=== PATIENT | female | born 1975 | race American Indian/Alaskan Native ===

== ENCOUNTER 2021-07-15 12:59 | Inpatient (IN) | payer MEDICARE ==
[2021-07-16 05:27] LABS: Basophils # (Auto) 0.1 K/mm3 (0.0-0.1); Basophils % (Auto) 0.7 % (0.0-1.8); Eosinophils # (Auto) 0.2 K/mm3 (0.0-0.4); Eosinophils % (Auto) 2.1 % (0.0-4.3); Hematocrit 30.3 % (30.3-42.9); Hemoglobin 9.8 gm/dl (10.1-14.3); Lymphocytes # (Auto) 2.6 K/mm3 (1.2-5.4); Lymphocytes % (Auto) 34.4 % (13.4-35.0); Mean Corpuscular HGB Conc 32 % (30-34); Mean Corpuscular Volume 80 fl (79-97); Monocytes # (Auto) 0.5 K/mm3 (0.0-0.8); Monocytes % (Auto) 6.2 % (0.0-7.3); Platelet Count 376 K/mm3 (140-440); Red Cell Distribution Width 16.4 % (13.2-15.2)
[2021-07-16 05:50] LABS: Albumin 3.5 g/dL (3.9-5); BUN/Creatinine Ratio 16; Blood Urea Nitrogen 14 mg/dL (7-17); Calcium 8.6 mg/dL (8.4-10.2); Chol/HDL Ratio 3.08 %; HDL Cholesterol 36 mg/dL (40-59); Hemolysis Index 3; LDL Cholesterol,Direct 66 mg/dL (50-130)
[2021-07-16 05:57] LABS: Alanine Aminotransferase < 5 units/L (7-56)
--- NOTE | 2021-07-16 08:58 | History and Physical Report ---
GP History & Physical - History of Present Illness Date of admission: 07/15/21 Date of Examination: 07/16/21 Reason for Admission: Danger to self, Failure of Outpatient Treatment, Severe anxiety/depression History of Present Illness: Per Admission Note: pt was taken to [facility] [place] for aggressive behavior, hallucination, she was hearing and seeing her mother. pt is non compliance with medication. Jacqueline Garcia is a 46y/o patient who was admitted for aggressive behavior and psychosis. The patient is deaf but she is able to communicate by writing. She is a poor historian. She says she was admitted because she "gets into trouble and gets crazy and depressed." The patient verbalized being depressed but denies SI/HI. 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 The patient denies any illicit drug use, alcohol or nicotine. The patient also denies any psych diagnoses outside of depression. She did say she had a suicide attempt once. She says she gets angry and hit windows and geronimo. PAST PSYCHIATRIC HISTORY Diagnoses: Denies Suicide attempts or Self-harm behavior: Yes Prior psychiatric hospitalizations: Yes Substance Abuse history: None reported Previous psychiatric medications tried: Yes Outpatient treatment: Yes PAST MEDICAL HISTORY: Deaf Family Psychiatric History: None reported or documented SOCIAL HISTORY Marital Status: Single Living Arrangements: With a friend Employment Status: Disabled Access to guns/weapons: None reported Education: History of Abuse: None reported Legal History: Yes REVIEW OF SYSTEMS Constitutional: Negative for weight loss ENT: Negative for stridor Respiratory: Negative for cough or hemoptysis All other systems reviewed and are negative MENTAL STATUS EXAMINATION General Appearance and Behavior: Age appropriate, good hygiene, wearing appropriate clothes, good eye contact Cooperation: Participating/engaged, but Guarded Psychomotor Behavior: Psychomotor normal Mood: depressed Affect and affective range: Restricted Thought Process: circumstancial Thought Content: Depression Speech: Nonverbal Suicidal Ideation: Denies Homicidal Ideation: Denies HI Hallucinations: Denies Impulse Control: Impaired Insight and Judgment: Limited insight and judgment Memory: Normal Attention: Normal Orientation: Alert, Assessment and Plan (1) Schizophrenia Current Visit: Yes Status: Acute Treatment Plan Patient admitted for inpatient psychiatric evaluation, medication adjustment and close monitoring The patient's behavior, mood, sleep and appetite will be closely monitored. Patient enrolled in individual and group therapeutic sessions and encouraged to attend. Patient provided with a safe and structured environment. Patient's physical health needs will be addressed by the Hospitalist. Hospitalist Consulted Labs including CBC, CMP, Lipid profile and Hemoglobin A1C levels ordered for baseline reference Social Assessment will be completed and the Marketing Account Executive will work with patient and family to ensure a suitable and safe disposition Medication adjustment will be made as clinically indicated Olanzapine 5mg po daily Melatonin 5mg po qhs Depakote DR 125mg po BID Prozac 10mg po daily Usual Wellness Holiness/Preservation: - Start Trazodone 50 mg po QHS & 50 mg po QHS PRN between 10 PM & 2 AM for insomnia - Start Melatonin 5 mg po QHS to promote circadian rhythm The patient agreed on the treatment plan, understood the risk, benefit, alternative treatment, potential consequence of no treatment, and gave informed consent. Estimated days: 7 Post hospital care: primary care provider, psychiatric provider Case staffed with Dr. Jovel Legal Status: Voluntary Reaction to Hospitalization: Accepting Medications and Allergies Allergies Allergy/AdvReac Type Severity Reaction Status Date / Time No Known Allergies Allergy Verified 07/16/21 01:50 Home Medications Medication Instructions Recorded Confirmed Last Taken Type Unobtainable 07/16/21 07/16/21 Unknown History Results - Results Labs/Vitals: Laboratory Last Values WBC 7.6 K/mm3 (4.5-11.0) 07/16/21 05:02 RBC 3.80 M/mm3 (3.65-5.03) 07/16/21 05:02 Hgb 9.8 gm/dl (10.1-14.3) L 07/16/21 05:02 Hct 30.3 % (30.3-42.9) 07/16/21 05:02 MCV 80 fl (79-97) 07/16/21 05:02 MCH 26 pg (28-32) L 07/16/21 05:02 MCHC 32 % (30-34) 07/16/21 05:02 RDW 16.4 % (13.2-15.2) H 07/16/21 05:02 Plt Count 376 K/mm3 (140-440) 07/16/21 05:02 Lymph % (Auto) 34.4 % (13.4-35.0) 07/16/21 05:02 [place] % (Auto) 6.2 % (0.0-7.3) 07/16/21 05:02 Eos % (Auto) 2.1 % (0.0-4.3) 07/16/21 05:02 Baso % (Auto) 0.7 % (0.0-1.8) 07/16/21 05:02 Lymph # (Auto) 2.6 K/mm3 (1.2-5.4) 07/16/21 05:02 [place] # (Auto) 0.5 K/mm3 (0.0-0.8) 07/16/21 05:02 Eos # (Auto) 0.2 K/mm3 (0.0-0.4) 07/16/21 05:02 Baso # (Auto) 0.1 K/mm3 (0.0-0.1) 07/16/21 05:02 Seg Neutrophils % 56.6 % (40.0-70.0) 07/16/21 05:02 Seg Neutrophils # 4.3 K/mm3 (1.8-7.7) 07/16/21 05:02 Sodium 138 mmol/L (137-145) 07/16/21 05:02 Potassium 4.8 mmol/L (3.6-5.0) 07/16/21 05:02 Chloride 104.3 mmol/L (98-107) 07/16/21 05:02 Carbon Dioxide 25 mmol/L (22-30) 07/16/21 05:02 Anion Gap 14 mmol/L 07/16/21 05:02 BUN 14 mg/dL (7-17) 07/16/21 05:02 Creatinine 0.9 mg/dL (0.6-1.2) 07/16/21 05:02 Estimated GFR > 60 ml/min 07/16/21 05:02 BUN/Creatinine Ratio 16 % 07/16/21 05:02 Glucose 97 mg/dL (65-100) 07/16/21 05:02 POC Glucose 78 mg/dL (70-105) 07/15/21 23:26 Hemoglobin A1c 4.6 % (4-6) 07/16/21 05:02 Calcium 8.6 mg/dL (8.4-10.2) 07/16/21 05:02 Total Bilirubin 0.30 mg/dL (0.1-1.2) 07/16/21 05:02 AST 8 units/L (5-40) 07/16/21 05:02 ALT < 5 units/L (7-56) L 07/16/21 05:02 Alkaline Phosphatase 59 units/L (35-129) 07/16/21 05:02 Total Protein 6.9 g/dL (6.3-8.2) 07/16/21 05:02 Albumin 3.5 g/dL (3.9-5) L 07/16/21 05:02 Albumin/Globulin Ratio 1.0 % 07/16/21 05:02 Triglycerides 62 mg/dL (2-149) 07/16/21 05:02 Cholesterol 111 mg/dL (50-199) 07/16/21 05:02 LDL Cholesterol Direct 66 mg/dL (50-130) 07/16/21 05:02 HDL Cholesterol 36 mg/dL (40-59) L 07/16/21 05:02 Cholesterol/HDL Ratio 3.08 % 07/16/21 05:02 TSH 4.480 mlU/mL (0.270-4.200) H 07/16/21 05:02 Last Vital Signs Temp 98.4 F 07/16/21 01:00 Pulse 86 07/16/21 01:00 Resp 16 07/16/21 01:00 BP 124/83 07/16/21 01:00 Pulse Ox 98 07/16/21 01:00 Physical Examination - Constitutional Vitals: Vital Signs Temp Pulse Resp BP Pulse Ox 98.4 F 86 16 124/83 98 07/16/21 01:00 07/16/21 01:00 07/16/21 01:00 07/16/21 01:00 07/16/21 01:00 Temperature -Last 24 Hours Temperature 98.4 F Mental Status Exam - Vital signs Last Vital Signs Temp 98.4 F 07/16/21 01:00 Pulse 86 07/16/21 01:00 Resp 16 07/16/21 01:00 BP 124/83 07/16/21 01:00 Pulse Ox 98 07/16/21 01:00 Physician Certification - Certification Statement Physician Certification Statement: This is an acknowledgement statement that JACQUELINE GARCIA is a 46 year old F who requires inpatient psychiatric admission for treatment which could reasonably be expected to improve the patient's condition for Estimated period of time patient will need to remain in the hospital: [ ] Plan for post-hospital care: [ ]
[2021-07-16] MEDS ORDERED: MELATONIN 5 MG TAB PO PRN (09:04)
[2021-07-16] MEDS: DIVALPROEX DR 125 MG TAB PO SCH ×2 (09:53→21:03)
[2021-07-16] MEDS: FLUoxetine 10 MG TAB PO SCH (09:53)
[2021-07-17] MEDS: FLUoxetine 10 MG TAB PO SCH (09:58)
[2021-07-17] MEDS: DIVALPROEX DR 125 MG TAB PO SCH ×2 (09:58→21:04)
--- NOTE | 2021-07-17 10:16 | Progress Note ---
Subjective Date of service: 07/17/21 Principal diagnosis: schizophrenia Subjective Comment: The patient was seen today. She is sitting in the dayroom awake. She is calm and cooperative. The patient is deaf and communicates by writing. She writes good morning to me and says she's fine. She denies SI/HI or hallucinations. She says she slept good. Reason for continued inpatient treatment: The patient was admitted for aggressive behavior and psychosis. Will continue to treat and monitor to make sure she is maximized on her medications. REVIEW OF SYSTEMS Constitutional: Negative for weight loss ENT: Negative for stridor Respiratory: Negative for cough or hemoptysis All other systems reviewed and are negative MENTAL STATUS EXAMINATION General Appearance and Behavior: Age appropriate, good hygiene, wearing appr opriate clothes, good eye contact Cooperation: Participating/engaged, but Guarded Psychomotor Behavior: Psychomotor normal Mood: depressed Affect and affective range: Restricted Thought Process: circumstancial Thought Content: Depression Speech: Nonverbal Suicidal Ideation: Denies Homicidal Ideation: Denies HI Hallucinations: Denies Impulse Control: Impaired Insight and Judgment: Limited insight and judgment Memory: Normal Attention: Normal Orientation: Alert, Assessment and Plan (1) Schizophrenia Current Visit: Yes Status: Acute Treatment Plan Patient admitted for inpatient psychiatric evaluation, medication adjustment and close monitoring The patient's behavior, mood, sleep and appetite will be closely monitored. Patient enrolled in individual and group therapeutic sessions and encouraged to attend. Patient provided with a safe and structured environment. Patient's physical health needs will be addressed by the Hospitalist. Hospitalist Consulted Labs including CBC, CMP, Lipid profile and Hemoglobin A1C levels ordered for baseline reference Social Assessment will be completed and the Black Ash Burner Operator will work with patient and family to ensure a suitable and safe disposition Medication adjustment will be made as clinically indicated Olanzapine 5mg po daily Melatonin 5mg po qhs Depakote DR 125mg po BID Prozac 10mg po daily Usual Wellness Anabaptist/Preservation: - Start Trazodone 50 mg po QHS & 50 mg po QHS PRN between 10 PM & 2 AM for insomnia - Start Melatonin 5 mg po QHS to promote circadian rhythm The patient agreed on the treatment plan, understood the risk, benefit, alternative treatment, potential consequence of no treatment, and gave informed consent. Estimated days: 7 Post hospital care: primary care provider, psychiatric provider Case staffed with Dr. Jovel Medications and Allergies Allergies Allergy/AdvReac Type Severity Reaction Status Date / Time No Known Allergies Allergy Verified 07/16/21 01:50 Home Medications Medication Instructions Recorded Confirmed Last Taken Type Unobtainable 07/16/21 07/16/21 Unknown History Active Meds: Active Medications Divalproex Sodium (Divalproex Dr 125 Mg Tab) 125 mg PO BID [facility] Last Admin: 07/17/21 09:58 Dose: 125 mg Documented by: Fluoxetine HCl (Fluoxetine 10 Mg Tab) 10 mg PO QDAY [facility] Last Admin: 07/17/21 09:58 Dose: 10 mg Documented by: Melatonin (Melatonin 5 Mg Tab) 5 mg PO QHS PRN PRN Reason: Sleep Olanzapine (Olanzapine 5 Mg Tab) 5 mg PO QDAY [facility] Last Admin: 07/17/21 09:58 Dose: 5 mg Documented by: Results - Results Labs/Vitals: Laboratory Last Values WBC 7.6 K/mm3 (4.5-11.0) 07/16/21 05:02 RBC 3.80 M/mm3 (3.65-5.03) 07/16/21 05:02 Hgb 9.8 gm/dl (10.1-14.3) L 07/16/21 05:02 Hct 30.3 % (30.3-42.9) 07/16/21 05:02 MCV 80 fl (79-97) 07/16/21 05:02 MCH 26 pg (28-32) L 07/16/21 05:02 MCHC 32 % (30-34) 07/16/21 05:02 RDW 16.4 % (13.2-15.2) H 07/16/21 05:02 Plt Count 376 K/mm3 (140-440) 07/16/21 05:02 Lymph % (Auto) 34.4 % (13.4-35.0) 07/16/21 05:02 [place] % (Auto) 6.2 % (0.0-7.3) 07/16/21 05:02 Eos % (Auto) 2.1 % (0.0-4.3) 07/16/21 05:02 Baso % (Auto) 0.7 % (0.0-1.8) 07/16/21 05:02 Lymph # (Auto) 2.6 K/mm3 (1.2-5.4) 07/16/21 05:02 [place] # (Auto) 0.5 K/mm3 (0.0-0.8) 07/16/21 05:02 Eos # (Auto) 0.2 K/mm3 (0.0-0.4) 07/16/21 05:02 Baso # (Auto) 0.1 K/mm3 (0.0-0.1) 07/16/21 05:02 Seg Neutrophils % 56.6 % (40.0-70.0) 07/16/21 05:02 Seg Neutrophils # 4.3 K/mm3 (1.8-7.7) 07/16/21 05:02 Sodium 138 mmol/L (137-145) 07/16/21 05:02 Potassium 4.8 mmol/L (3.6-5.0) 07/16/21 05:02 Chloride 104.3 mmol/L (98-107) 07/16/21 05:02 Carbon Dioxide 25 mmol/L (22-30) 07/16/21 05:02 Anion Gap 14 mmol/L 07/16/21 05:02 BUN 14 mg/dL (7-17) 07/16/21 05:02 Creatinine 0.9 mg/dL (0.6-1.2) 07/16/21 05:02 Estimated GFR > 60 ml/min 07/16/21 05:02 BUN/Creatinine Ratio 16 % 07/16/21 05:02 Glucose 97 mg/dL (65-100) 07/16/21 05:02 POC Glucose 78 mg/dL (70-105) 07/15/21 23:26 Hemoglobin A1c 4.6 % (4-6) 07/16/21 05:02 Calcium 8.6 mg/dL (8.4-10.2) 07/16/21 05:02 Total Bilirubin 0.30 mg/dL (0.1-1.2) 07/16/21 05:02 AST 8 units/L (5-40) 07/16/21 05:02 ALT < 5 units/L (7-56) L 07/16/21 05:02 Alkaline Phosphatase 59 units/L (35-129) 07/16/21 05:02 Total Protein 6.9 g/dL (6.3-8.2) 07/16/21 05:02 Albumin 3.5 g/dL (3.9-5) L 07/16/21 05:02 Albumin/Globulin Ratio 1.0 % 07/16/21 05:02 Triglycerides 62 mg/dL (2-149) 07/16/21 05:02 Cholesterol 111 mg/dL (50-199) 07/16/21 05:02 LDL Cholesterol Direct 66 mg/dL (50-130) 07/16/21 05:02 HDL Cholesterol 36 mg/dL (40-59) L 07/16/21 05:02 Cholesterol/HDL Ratio 3.08 % 07/16/21 05:02 TSH 4.480 mlU/mL (0.270-4.200) H 07/16/21 05:02 Last Vital Signs Temp 97.8 F 07/17/21 07:41 Pulse 55 L 07/17/21 08:20 Resp 18 07/17/21 07:41 BP 159/80 07/17/21 08:20 Pulse Ox 100 07/17/21 08:20
--- NOTE | 2021-07-17 17:55 | Consultation ---
History of Present Illness - Reason for Consult Consult date: 07/17/21 Medical management - History of Present Illness Jacqueline Garcia is a 46y/o patient who was admitted for aggressive behavior and psychosis. The patient is deaf but she is able to communicate by writing. The patient endorses having a history of hypertension but is unable to provide information regarding any medications that she is taken for. The patient also describes having a history of elevated cholesterol. The patient could not provide much additional medical information outside of what was previously stated. The consult was placed for management of nonpsychiatric medical conditions Past History Past Medical History: hypertension, hyperlipidemia Past Surgical History: Social history: no significant social history Family history: hypertension (And grandmother) Medications and Allergies Allergies Allergy/AdvReac Type Severity Reaction Status Date / Time No Known Allergies Allergy Verified 07/16/21 01:50 Home Medications Medication Instructions Recorded Confirmed Last Taken Type Unobtainable 07/16/21 07/16/21 Unknown History Active Meds: Active Medications Divalproex Sodium (Divalproex Dr 125 Mg Tab) 125 mg PO BID [facility] Last Admin: 07/17/21 09:58 Dose: 125 mg Documented by: Fluoxetine HCl (Fluoxetine 10 Mg Tab) 10 mg PO QDAY [facility] Last Admin: 07/17/21 09:58 Dose: 10 mg Documented by: Melatonin (Melatonin 5 Mg Tab) 5 mg PO QHS PRN PRN Reason: Sleep Olanzapine (Olanzapine 5 Mg Tab) 5 mg PO QDAY [facility] Last Admin: 07/17/21 09:58 Dose: 5 mg Documented by: Review of Systems All systems: negative Exam - Constitutional Vitals: Temp Pulse Resp BP Pulse Ox 97.8 F 55 L 18 159/80 100 07/17/21 07:41 07/17/21 08:20 07/17/21 07:41 07/17/21 08:20 07/17/21 08:20 General appearance: Present: no acute distress - EENT Eyes: Present: PERRL, EOM intact ENT: clear oral mucosa, dentition normal, other (Deaf) - Neck Neck: Present: supple, normal ROM - Respiratory Respiratory effort: normal - Cardiovascular Rhythm: regular Heart Sounds: Present: S1 & S2 - Extremities Extremities: no ischemia, pulses intact, pulses symmetrical, normal temperature, normal color Extremity abnormal: edema (Trace edema to bilateral mid sosa) Peripheral Pulses: within normal limits - Abdominal General gastrointestinal: Present: soft, non-tender, non-distended, normal bowel sounds Female genitourinary: Present: deferred - Rectal Rectal Exam: deferred - Integumentary Integumentary: Present: clear, warm, dry - Musculoskeletal Musculoskeletal: strength equal bilaterally - Psychiatric Psychiatric: appropriate mood/affect, cooperative, other (Decreased insight) - Neurologic Neurologic: CNII-XII intact - Allied Health Allied health notes reviewed: nursing Results - Labs CBC & Chem 7: 07/16/21 05:02 07/16/21 05:02 Assessment and Plan Jacqueline Garcia is a 46y/o patient with past medical history of hypertension and hyperlipidemia who was admitted for aggressive behavior and psychosis. The patient is deaf but she is able to communicate by writing. The consult was placed for management of nonpsychiatric medical conditions. #Schizophrenia #Psychosis -Defer to psychiatry for further management #Hypertension -Unable to get history of home medications -Blood pressure currently elevated; starting amlodipine 5 mg daily -Blood pressure goal <140/80 -We will continue to monitor #Hyperlipidemia -HDL 30, LDL 66, total cholesterol 111 -ASCVD risk is 0.9% for cardiovascular event in the next 10 years--> no statin therapy is indicated at this time #Elevated TSH -TSH 4.48 -Pending free T4 -We will consider initiation of levothyroxine for possible hypothyroidism #Normocytic anemia -Hemoglobin 9.8 -We will order iron studies, ferritin, folic acid, B12 -We will continue to monitor. Transfusion needed if hemoglobin <7. Thank you for this interesting consult. We will continue to follow.
[2021-07-17] MEDS: amLODIPine 5 MG TAB PO SCH (20:18)
--- NOTE | 2021-07-18 09:30 | Progress Note ---
Subjective Date of service: 07/18/21 Principal diagnosis: schizophrenia Subjective Comment: The patient was seen today. She is sitting off to herself in the dayroom. She is calm and cooperative. The patient is deaf and communicates by writing. She says she is doing fine when asked. The patient says she slept okay but was up to the bathroom. She denies SI/HI. She denies hallucinations. Reason for continued inpatient treatment: The patient appears to be doing much better. She was admitted for aggressive behavior and psychosis but hasn't displayed so far. Will continue to treat and monitor to make sure she is maximized on her medications. REVIEW OF SYSTEMS Constitutional: Negative for weight loss ENT: Negative for stridor Respiratory: Negative for cough or hemoptysis All other systems reviewed and are negative MENTAL STATUS EXAMINATION General Appearance and Behavior: Age appropriate, good hygiene, wearing appropriate clothes, good eye contact Cooperation: Participating/engaged, but Guarded Psychomotor Behavior: Psychomotor normal Mood: depressed Affect and affective range: Restricted Thought Process: circumstancial Thought Content: Depression Speech: Nonverbal Suicidal Ideation: Denies Homicidal Ideation: Denies HI Hallucinations: Denies Impulse Control: Impaired Insight and Judgment: Limited insight and judgment Memory: Normal Attention: Normal Orientation: Alert, Assessment and Plan (1) Schizophrenia Current Visit: Yes Status: Acute Treatment Plan Patient admitted for inpatient psychiatric evaluation, medication adjustment and close monitoring The patient's behavior, mood, sleep and appetite will be closely monitored. Patient enrolled in individual and group therapeutic sessions and encouraged to attend. Patient provided with a safe and structured environment. Patient's physical health needs will be addressed by the Hospitalist. Hospitalist Consulted Labs including CBC, CMP, Lipid profile and Hemoglobin A1C levels ordered for baseline reference Social Assessment will be completed and the Director Of Agriculture will work with patient and family to ensure a suitable and safe disposition Medication adjustment will be made as clinically indicated Olanzapine 5mg po daily Melatonin 5mg po qhs Depakote DR 125mg po BID Prozac 10mg po daily Usual Wellness Cheondoism/Preservation: - Start Trazodone 50 mg po QHS & 50 mg po QHS PRN between 10 PM & 2 AM for insomnia - Start Melatonin 5 mg po QHS to promote circadian rhythm The patient agreed on the treatment plan, understood the risk, benefit, alternative treatment, potential consequence of no treatment, and gave informed consent. Estimated days: 2 Post hospital care: primary care provider, psychiatric provider Case staffed with Dr. Jovel Medications and Allergies Allergies Allergy/AdvReac Type Severity Reaction Status Date / Time No Known Allergies Allergy Verified 07/16/21 01:50 Home Medications Medication Instructions Recorded Confirmed Last Taken Type Unobtainable 07/16/21 07/16/21 Unknown History Active Meds: Active Medications Amlodipine Besylate (Amlodipine 5 Mg Tab) 5 mg PO QDAY [facility] Last Admin: 07/17/21 20:18 Dose: 5 mg Documented by: Divalproex Sodium (Divalproex Dr 125 Mg Tab) 125 mg PO BID [facility] Last Admin: 07/17/21 21:04 Dose: 125 mg Documented by: Fluoxetine HCl (Fluoxetine 10 Mg Tab) 10 mg PO QDAY [facility] Last Admin: 07/17/21 09:58 Dose: 10 mg Documented by: Melatonin (Melatonin 5 Mg Tab) 5 mg PO QHS PRN PRN Reason: Sleep Olanzapine (Olanzapine 5 Mg Tab) 5 mg PO QDAY [facility] Last Admin: 07/17/21 09:58 Dose: 5 mg Documented by: Results - Results Labs/Vitals: Laboratory Last Values WBC 7.6 K/mm3 (4.5-11.0) 07/16/21 05:02 RBC 3.80 M/mm3 (3.65-5.03) 07/16/21 05:02 Hgb 9.8 gm/dl (10.1-14.3) L 07/16/21 05:02 Hct 30.3 % (30.3-42.9) 07/16/21 05:02 MCV 80 fl (79-97) 07/16/21 05:02 MCH 26 pg (28-32) L 07/16/21 05:02 MCHC 32 % (30-34) 07/16/21 05:02 RDW 16.4 % (13.2-15.2) H 07/16/21 05:02 Plt Count 376 K/mm3 (140-440) 07/16/21 05:02 Lymph % (Auto) 34.4 % (13.4-35.0) 07/16/21 05:02 [place] % (Auto) 6.2 % (0.0-7.3) 07/16/21 05:02 Eos % (Auto) 2.1 % (0.0-4.3) 07/16/21 05:02 Baso % (Auto) 0.7 % (0.0-1.8) 07/16/21 05:02 Lymph # (Auto) 2.6 K/mm3 (1.2-5.4) 07/16/21 05:02 [place] # (Auto) 0.5 K/mm3 (0.0-0.8) 07/16/21 05:02 Eos # (Auto) 0.2 K/mm3 (0.0-0.4) 07/16/21 05:02 Baso # (Auto) 0.1 K/mm3 (0.0-0.1) 07/16/21 05:02 Seg Neutrophils % 56.6 % (40.0-70.0) 07/16/21 05:02 Seg Neutrophils # 4.3 K/mm3 (1.8-7.7) 07/16/21 05:02 Sodium 138 mmol/L (137-145) 07/16/21 05:02 Potassium 4.8 mmol/L (3.6-5.0) 07/16/21 05:02 Chloride 104.3 mmol/L (98-107) 07/16/21 05:02 Carbon Dioxide 25 mmol/L (22-30) 07/16/21 05:02 Anion Gap 14 mmol/L 07/16/21 05:02 BUN 14 mg/dL (7-17) 07/16/21 05:02 Creatinine 0.9 mg/dL (0.6-1.2) 07/16/21 05:02 Estimated GFR > 60 ml/min 07/16/21 05:02 BUN/Creatinine Ratio 16 % 07/16/21 05:02 Glucose 97 mg/dL (65-100) 07/16/21 05:02 POC Glucose 78 mg/dL (70-105) 07/15/21 23:26 Hemoglobin A1c 4.6 % (4-6) 07/16/21 05:02 Calcium 8.6 mg/dL (8.4-10.2) 07/16/21 05:02 Total Bilirubin 0.30 mg/dL (0.1-1.2) 07/16/21 05:02 AST 8 units/L (5-40) 07/16/21 05:02 ALT < 5 units/L (7-56) L 07/16/21 05:02 Alkaline Phosphatase 59 units/L (35-129) 07/16/21 05:02 Total Protein 6.9 g/dL (6.3-8.2) 07/16/21 05:02 Albumin 3.5 g/dL (3.9-5) L 07/16/21 05:02 Albumin/Globulin Ratio 1.0 % 07/16/21 05:02 Triglycerides 62 mg/dL (2-149) 07/16/21 05:02 Cholesterol 111 mg/dL (50-199) 07/16/21 05:02 LDL Cholesterol Direct 66 mg/dL (50-130) 07/16/21 05:02 HDL Cholesterol 36 mg/dL (40-59) L 07/16/21 05:02 Cholesterol/HDL Ratio 3.08 % 07/16/21 05:02 TSH 4.480 mlU/mL (0.270-4.200) H 07/16/21 05:02 Free T4 0.95 ng/dL (0.76-1.46) 07/18/21 05:14 Last Vital Signs Temp 99.0 F 07/17/21 22:00 Pulse 60 07/17/21 22:00 Resp 18 07/17/21 22:00 BP 133/72 07/17/21 22:00 Pulse Ox 99 07/17/21 22:00
[2021-07-18] MEDS: amLODIPine 5 MG TAB PO SCH (11:20)
[2021-07-18] MEDS: DIVALPROEX DR 125 MG TAB PO SCH ×2 (11:21→21:46)
[2021-07-18] MEDS: FLUoxetine 10 MG TAB PO SCH (11:21)
--- NOTE | 2021-07-18 14:17 | Progress Note ---
Assessment and Plan Assessment and plan: Jacqueline Garcia is a 46y/o patient with past medical history of hypertension and hyperlipidemia who was admitted for aggressive behavior and psychosis. The patient is deaf but she is able to communicate by writing. The consult was placed for management of nonpsychiatric medical conditions. #Schizophrenia #Psychosis -Defer to psychiatry for further management #Hypertension- resolved -Unable to get history of home medications -continue amlodipine 5 mg daily -Blood pressure goal <140/80 -We will continue to monitor #Hyperlipidemia -HDL 30, LDL 66, total cholesterol 111 -ASCVD risk is 0.9% for cardiovascular event in the next 10 years--> no statin therapy is indicated at this time #Subclinical hypothyroidism -TSH 4.48, free T4 0.95 -patient currently asymptomatic; will hold off on initiating levothyroxine -Continue to monitor #Normocytic anemia -Hemoglobin 9.8 -We will order iron studies, ferritin, folic acid, B12 -We will continue to monitor. Transfusion needed if hemoglobin <7. We will continue to follow. Disposition Plan: Continue medical management Total Time Spent with Patient (Minutes): 20 History Interval history: Unaware of any acute events overnight. Hospitalist Physical - Constitutional Vitals: Temp Pulse Resp BP Pulse Ox 99.1 F 83 16 116/71 96 07/18/21 09:37 07/18/21 11:20 07/18/21 09:37 07/18/21 11:20 07/18/21 09:37 General appearance: Present: no acute distress - EENT Eyes: Present: PERRL, EOM intact ENT: clear oral mucosa, dentition normal, other (Patient is deaf) - Neck Neck: Present: supple, normal ROM - Respiratory Respiratory effort: normal - Cardiovascular Rhythm: regular Heart Sounds: Present: S1 & S2 - Extremities Extremities: no ischemia, pulses intact, pulses symmetrical, No edema, normal temperature, normal color Peripheral Pulses: within normal limits - Abdominal General gastrointestinal: soft, non-tender, non-distended, normal bowel sounds - Integumentary Integumentary: Present: clear, warm, dry - Psychiatric Psychiatric: appropriate mood/affect, cooperative - Neurologic Neurologic: CNII-XII intact, moves all extremities - Allied Health Allied health notes reviewed: nursing HEART Score - HEART Score History: Slightly suspicious Results - Labs CBC & Chem 7: 07/16/21 05:02 07/16/21 05:02 Labs: Laboratory Last Values WBC 7.6 K/mm3 (4.5-11.0) 07/16/21 05:02 RBC 3.80 M/mm3 (3.65-5.03) 07/16/21 05:02 Hgb 9.8 gm/dl (10.1-14.3) L 07/16/21 05:02 Hct 30.3 % (30.3-42.9) 07/16/21 05:02 MCV 80 fl (79-97) 07/16/21 05:02 MCH 26 pg (28-32) L 07/16/21 05:02 MCHC 32 % (30-34) 07/16/21 05:02 RDW 16.4 % (13.2-15.2) H 07/16/21 05:02 Plt Count 376 K/mm3 (140-440) 07/16/21 05:02 Lymph % (Auto) 34.4 % (13.4-35.0) 07/16/21 05:02 [place] % (Auto) 6.2 % (0.0-7.3) 07/16/21 05:02 Eos % (Auto) 2.1 % (0.0-4.3) 07/16/21 05:02 Baso % (Auto) 0.7 % (0.0-1.8) 07/16/21 05:02 Lymph # (Auto) 2.6 K/mm3 (1.2-5.4) 07/16/21 05:02 [place] # (Auto) 0.5 K/mm3 (0.0-0.8) 07/16/21 05:02 Eos # (Auto) 0.2 K/mm3 (0.0-0.4) 07/16/21 05:02 Baso # (Auto) 0.1 K/mm3 (0.0-0.1) 07/16/21 05:02 Seg Neutrophils % 56.6 % (40.0-70.0) 07/16/21 05:02 Seg Neutrophils # 4.3 K/mm3 (1.8-7.7) 07/16/21 05:02 Sodium 138 mmol/L (137-145) 07/16/21 05:02 Potassium 4.8 mmol/L (3.6-5.0) 07/16/21 05:02 Chloride 104.3 mmol/L (98-107) 07/16/21 05:02 Carbon Dioxide 25 mmol/L (22-30) 07/16/21 05:02 Anion Gap 14 mmol/L 07/16/21 05:02 BUN 14 mg/dL (7-17) 07/16/21 05:02 Creatinine 0.9 mg/dL (0.6-1.2) 07/16/21 05:02 Estimated GFR > 60 ml/min 07/16/21 05:02 BUN/Creatinine Ratio 16 % 07/16/21 05:02 Glucose 97 mg/dL (65-100) 07/16/21 05:02 POC Glucose 78 mg/dL (70-105) 07/15/21 23:26 Hemoglobin A1c 4.6 % (4-6) 07/16/21 05:02 Calcium 8.6 mg/dL (8.4-10.2) 07/16/21 05:02 Total Bilirubin 0.30 mg/dL (0.1-1.2) 07/16/21 05:02 AST 8 units/L (5-40) 07/16/21 05:02 ALT < 5 units/L (7-56) L 07/16/21 05:02 Alkaline Phosphatase 59 units/L (35-129) 07/16/21 05:02 Total Protein 6.9 g/dL (6.3-8.2) 07/16/21 05:02 Albumin 3.5 g/dL (3.9-5) L 07/16/21 05:02 Albumin/Globulin Ratio 1.0 % 07/16/21 05:02 Triglycerides 62 mg/dL (2-149) 07/16/21 05:02 Cholesterol 111 mg/dL (50-199) 07/16/21 05:02 LDL Cholesterol Direct 66 mg/dL (50-130) 07/16/21 05:02 HDL Cholesterol 36 mg/dL (40-59) L 07/16/21 05:02 Cholesterol/HDL Ratio 3.08 % 07/16/21 05:02 TSH 4.480 mlU/mL (0.270-4.200) H 07/16/21 05:02 Free T4 0.95 ng/dL (0.76-1.46) 07/18/21 05:14 Laurent/IV: Voiding Method Toilet Active Medications - Current Medications Current Medications: Generic Name Dose Route Start Last Admin Trade Name Freq PRN Reason Stop Dose Admin Amlodipine Besylate 5 mg 07/17/21 18:00 07/18/21 11:20 Amlodipine 5 Mg Tab PO 5 mg QDAY JESSICA Administration Divalproex Sodium 125 mg 07/16/21 10:00 07/18/21 11:[address] 125 Mg Tab PO 125 mg BID JESSICA Administration Fluoxetine HCl 10 mg 07/16/21 10:00 07/18/21 11:21 Fluoxetine 10 Mg Tab PO 10 mg QDAY JESSICA Administration Melatonin 5 mg 07/16/21 09:04 Melatonin 5 Mg Tab PO QHS PRN Sleep Olanzapine 5 mg 07/16/21 10:00 07/18/21 11:20 Olanzapine 5 Mg Tab PO 5 mg QDAY JESSICA Administration
--- NOTE | 2021-07-19 09:33 | Progress Note ---
Subjective Date of service: 07/19/21 Principal diagnosis: schizophrenia Subjective Comment: The patient was seen today. She is sitting off to herself in the dayroom. She is calm and cooperative. The patient smiles as she sees me approaching her. She says she feels good. She denies SI/HI. When asked about hallucinations, she writes "yes, but talking stopped." Reason for continued inpatient treatment: The patient appears to be doing much better. She was admitted for aggressive behavior and psychosis but hasn't displayed so far. Will continue to treat and monitor to make sure she is maximized on her medications. REVIEW OF SYSTEMS Constitutional: Negative for weight loss ENT: Negative for stridor Respiratory: Negative for cough or hemoptysis All other systems reviewed and are negative MENTAL STATUS EXAMINATION General Appearance and Behavior: Age appropriate, good hygiene, wearing appropriate clothes, good eye contact Cooperation: Participating/engaged, but Guarded Psychomotor Behavior: Psychomotor normal Mood: depressed Affect and affective range: Restricted Thought Process: circumstancial Thought Content: Depression Speech: Nonverbal Suicidal Ideation: Denies Homicidal Ideation: Denies HI Hallucinations: Denies Impulse Control: Impaired Insight and Judgment: Limited insight and judgment Memory: Normal Attention: Normal Orientation: Alert, Assessment and Plan (1) Schizophrenia Current Visit: Yes Status: Acute Treatment Plan Patient admitted for inpatient psychiatric evaluation, medication adjustment and close monitoring The patient's behavior, mood, sleep and appetite will be closely monitored. Patient enrolled in individual and group therapeutic sessions and encouraged to attend. Patient provided with a safe and structured environment. Patient's physical health needs will be addressed by the Hospitalist. Hospitalist Consulted Labs including CBC, CMP, Lipid profile and Hemoglobin A1C levels ordered for baseline reference Social Assessment will be completed and the Director [employer] will work with patient and family to ensure a suitable and safe disposition Medication adjustment will be made as clinically indicated Olanzapine 5mg po daily Melatonin 5mg po qhs Depakote DR 125mg po BID Prozac 10mg po daily Usual Wellness Advent/Preservation: - Start Trazodone 50 mg po QHS & 50 mg po QHS PRN between 10 PM & 2 AM for insomnia - Start Melatonin 5 mg po QHS to promote circadian rhythm The patient agreed on the treatment plan, understood the risk, benefit, alternative treatment, potential consequence of no treatment, and gave informed consent. Estimated days: 2 Post hospital care: primary care provider, psychiatric provider Case staffed with Dr. Jovel Medications and Allergies Allergies Allergy/AdvReac Type Severity Reaction Status Date / Time No Known Allergies Allergy Verified 07/16/21 01:50 Home Medications Medication Instructions Recorded Confirmed Last Taken Type Unobtainable 07/16/21 07/16/21 Unknown History Active Meds: Active Medications Amlodipine Besylate (Amlodipine 5 Mg Tab) 5 mg PO QDAY [facility] Last Admin: 07/18/21 11:20 Dose: 5 mg Documented by: Divalproex Sodium (Divalproex Dr 125 Mg Tab) 125 mg PO BID [facility] Last Admin: 07/18/21 21:46 Dose: 125 mg Documented by: Fluoxetine HCl (Fluoxetine 10 Mg Tab) 10 mg PO QDAY [facility] Last Admin: 07/18/21 11:21 Dose: 10 mg Documented by: Melatonin (Melatonin 5 Mg Tab) 5 mg PO QHS PRN PRN Reason: Sleep Olanzapine (Olanzapine 5 Mg Tab) 5 mg PO QDAY [facility] Last Admin: 07/18/21 11:20 Dose: 5 mg Documented by: Results - Results Labs/Vitals: Laboratory Last Values WBC 7.6 K/mm3 (4.5-11.0) 07/16/21 05:02 RBC 3.80 M/mm3 (3.65-5.03) 07/16/21 05:02 Hgb 9.8 gm/dl (10.1-14.3) L 07/16/21 05:02 Hct 30.3 % (30.3-42.9) 07/16/21 05:02 MCV 80 fl (79-97) 07/16/21 05:02 MCH 26 pg (28-32) L 07/16/21 05:02 MCHC 32 % (30-34) 07/16/21 05:02 RDW 16.4 % (13.2-15.2) H 07/16/21 05:02 Plt Count 376 K/mm3 (140-440) 07/16/21 05:02 Lymph % (Auto) 34.4 % (13.4-35.0) 07/16/21 05:02 [place] % (Auto) 6.2 % (0.0-7.3) 07/16/21 05:02 Eos % (Auto) 2.1 % (0.0-4.3) 07/16/21 05:02 Baso % (Auto) 0.7 % (0.0-1.8) 07/16/21 05:02 Lymph # (Auto) 2.6 K/mm3 (1.2-5.4) 07/16/21 05:02 [place] # (Auto) 0.5 K/mm3 (0.0-0.8) 07/16/21 05:02 Eos # (Auto) 0.2 K/mm3 (0.0-0.4) 07/16/21 05:02 Baso # (Auto) 0.1 K/mm3 (0.0-0.1) 07/16/21 05:02 Seg Neutrophils % 56.6 % (40.0-70.0) 07/16/21 05:02 Seg Neutrophils # 4.3 K/mm3 (1.8-7.7) 07/16/21 05:02 Sodium 138 mmol/L (137-145) 07/16/21 05:02 Potassium 4.8 mmol/L (3.6-5.0) 07/16/21 05:02 Chloride 104.3 mmol/L (98-107) 07/16/21 05:02 Carbon Dioxide 25 mmol/L (22-30) 07/16/21 05:02 Anion Gap 14 mmol/L 07/16/21 05:02 BUN 14 mg/dL (7-17) 07/16/21 05:02 Creatinine 0.9 mg/dL (0.6-1.2) 07/16/21 05:02 Estimated GFR > 60 ml/min 07/16/21 05:02 BUN/Creatinine Ratio 16 % 07/16/21 05:02 Glucose 97 mg/dL (65-100) 07/16/21 05:02 POC Glucose 78 mg/dL (70-105) 07/15/21 23:26 Hemoglobin A1c 4.6 % (4-6) 07/16/21 05:02 Calcium 8.6 mg/dL (8.4-10.2) 07/16/21 05:02 Total Bilirubin 0.30 mg/dL (0.1-1.2) 07/16/21 05:02 AST 8 units/L (5-40) 07/16/21 05:02 ALT < 5 units/L (7-56) L 07/16/21 05:02 Alkaline Phosphatase 59 units/L (35-129) 07/16/21 05:02 Total Protein 6.9 g/dL (6.3-8.2) 07/16/21 05:02 Albumin 3.5 g/dL (3.9-5) L 07/16/21 05:02 Albumin/Globulin Ratio 1.0 % 07/16/21 05:02 Triglycerides 62 mg/dL (2-149) 07/16/21 05:02 Cholesterol 111 mg/dL (50-199) 07/16/21 05:02 LDL Cholesterol Direct 66 mg/dL (50-130) 07/16/21 05:02 HDL Cholesterol 36 mg/dL (40-59) L 07/16/21 05:02 Cholesterol/HDL Ratio 3.08 % 07/16/21 05:02 TSH 4.480 mlU/mL (0.270-4.200) H 07/16/21 05:02 Free T4 0.95 ng/dL (0.76-1.46) 07/18/21 05:14 Last Vital Signs Temp 98.7 F 07/18/21 22:00 Pulse 72 07/18/21 22:00 Resp 16 07/18/21 22:00 BP 124/69 07/18/21 22:00 Pulse Ox 100 07/18/21 22:00
[2021-07-19 09:55] VITALS: BP 118/66
[2021-07-19] MEDS: DIVALPROEX DR 125 MG TAB PO SCH (09:55)
[2021-07-19] MEDS: FLUoxetine 10 MG TAB PO SCH (09:56)
[2021-07-19] MEDS: amLODIPine 5 MG TAB PO SCH (09:56)
--- NOTE | 2021-07-19 18:39 | Discharge Summary ---
Providers - Providers Date of Admission: 07/15/21 23:01 Date of discharge: 07/19/21 Attending physician: ELÍAS BROWN MD 07/15/21 14:25 Consult to Physician [CONS] Routine Comment: Consulting Provider: QUE SCHAEFER Physician Instructions: Reason For Exam: manage medical conditions Primary care physician: COAL HANDLER Hospitalization Reason for admission: aggression Admitting Diagnosis: F20.9 - SCHIZOPHRENIA, UNSPECIFIED Hospital course: The patient was provided inpatient psychiatric treatment with safe and supportive care, medication adjustment, adverse effect monitoring, medical evaluations, medical treatments, assessment and psycho-education. The patient's mood, cognition, behavior, moral support are improved and stabilized. St the time of discharge, the patient had no endangering behavior and no debilitating adverse effects. The patient agreed on potential consequences of no treatment a nd gave informed consent. Disposition: HOME / SELF CARE / HOMELESS Time spent for discharge: 35 Allergies/Adverse Reactions: Allergies No Known Allergies Allergy (Verified 07/16/21 01:50) Vital Signs: Last Vital Signs Temp 98.7 F 07/19/21 07:33 Pulse 59 L 07/19/21 09:56 Resp 16 07/19/21 07:33 BP 118/66 07/19/21 07:33 Pulse Ox 96 07/19/21 07:33 Last Lab: Laboratory Last Values WBC 7.6 K/mm3 (4.5-11.0) 07/16/21 05:02 RBC 3.80 M/mm3 (3.65-5.03) 07/16/21 05:02 Hgb 9.8 gm/dl (10.1-14.3) L 07/16/21 05:02 Hct 30.3 % (30.3-42.9) 07/16/21 05:02 MCV 80 fl (79-97) 07/16/21 05:02 MCH 26 pg (28-32) L 07/16/21 05:02 MCHC 32 % (30-34) 07/16/21 05:02 RDW 16.4 % (13.2-15.2) H 07/16/21 05:02 Plt Count 376 K/mm3 (140-440) 07/16/21 05:02 Lymph % (Auto) 34.4 % (13.4-35.0) 07/16/21 05:02 [place] % (Auto) 6.2 % (0.0-7.3) 07/16/21 05:02 Eos % (Auto) 2.1 % (0.0-4.3) 07/16/21 05:02 Baso % (Auto) 0.7 % (0.0-1.8) 07/16/21 05:02 Lymph # (Auto) 2.6 K/mm3 (1.2-5.4) 07/16/21 05:02 [place] # (Auto) 0.5 K/mm3 (0.0-0.8) 07/16/21 05:02 Eos # (Auto) 0.2 K/mm3 (0.0-0.4) 07/16/21 05:02 Baso # (Auto) 0.1 K/mm3 (0.0-0.1) 07/16/21 05:02 Seg Neutrophils % 56.6 % (40.0-70.0) 07/16/21 05:02 Seg Neutrophils # 4.3 K/mm3 (1.8-7.7) 07/16/21 05:02 Sodium 138 mmol/L (137-145) 07/16/21 05:02 Potassium 4.8 mmol/L (3.6-5.0) 07/16/21 05:02 Chloride 104.3 mmol/L (98-107) 07/16/21 05:02 Carbon Dioxide 25 mmol/L (22-30) 07/16/21 05:02 Anion Gap 14 mmol/L 07/16/21 05:02 BUN 14 mg/dL (7-17) 07/16/21 05:02 Creatinine 0.9 mg/dL (0.6-1.2) 07/16/21 05:02 Estimated GFR > 60 ml/min 07/16/21 05:02 BUN/Creatinine Ratio 16 % 07/16/21 05:02 Glucose 97 mg/dL (65-100) 07/16/21 05:02 POC Glucose 78 mg/dL (70-105) 07/15/21 23:26 Hemoglobin A1c 4.6 % (4-6) 07/16/21 05:02 Calcium 8.6 mg/dL (8.4-10.2) 07/16/21 05:02 Total Bilirubin 0.30 mg/dL (0.1-1.2) 07/16/21 05:02 AST 8 units/L (5-40) 07/16/21 05:02 ALT < 5 units/L (7-56) L 07/16/21 05:02 Alkaline Phosphatase 59 units/L (35-129) 07/16/21 05:02 Total Protein 6.9 g/dL (6.3-8.2) 07/16/21 05:02 Albumin 3.5 g/dL (3.9-5) L 07/16/21 05:02 Albumin/Globulin Ratio 1.0 % 07/16/21 05:02 Triglycerides 62 mg/dL (2-149) 07/16/21 05:02 Cholesterol 111 mg/dL (50-199) 07/16/21 05:02 LDL Cholesterol Direct 66 mg/dL (50-130) 07/16/21 05:02 HDL Cholesterol 36 mg/dL (40-59) L 07/16/21 05:02 Cholesterol/HDL Ratio 3.08 % 07/16/21 05:02 TSH 4.480 mlU/mL (0.270-4.200) H 07/16/21 05:02 Free T4 0.95 ng/dL (0.76-1.46) 07/18/21 05:14 Core Measure Documentation - Palliative Care Palliative Care/ Comfort Measures: Not Applicable - Core Measures Any of the following diagnoses?: none Exam - Constitutional Vitals: Temp Pulse Resp BP Pulse Ox 98.7 F 59 L 16 118/66 96 07/19/21 07:33 07/19/21 09:56 07/19/21 07:33 07/19/21 07:33 07/19/21 07:33 General appearance: Present: no acute distress - EENT Eyes: Present: PERRL, EOM intact ENT: hearing intact, clear oral mucosa - Neck Neck: Present: supple Plan Activity: advance as tolerated Care Plan Goals: maintain good and stable mental health Plan of Treatment: The patient should be compliant with medications, not to use drugs, and not to drink alcohol. The patient understands that if suicidal ideas, homicidal ideas or any endangering feeling arise, the patient should seek assistance including, but not limited to crisis hotline, and emergency room. Assessment: schizophrenia Follow up with: PRIMARY CARE, [Primary Care Provider] - 7 Days Prescriptions: Melatonin [Melatonin 5MG TAB] 5 mg PO QHS PRN #30 tablet PRN Reason: Sleep Divalproex [Beatriz Bradford] 125 mg PO BID #60 tablet FLUoxetine [PROzac] 10 mg PO QDAY #30 tablet OLANzapine [ZyPREXA] 5 mg PO QDAY #30 tablet
== END 2021-07-19 17:28 | disposition home or self-care (01) | DRG 885 ==
LOC: UNDOADMIN 12:59 → 3A 12:59 → 5A 23:01
PROVIDERS: ADMIT Psychiatry & Neurology Psychiatry; ATTEND Psychiatry & Neurology Psychiatry
DX: F20.9 Schizophrenia, unspecified (principal); D64.9 Anemia, unspecified; I10 Essential (primary) hypertension; E78.5 Hyperlipidemia, unspecified; E03.8 Other specified hypothyroidism
CPT/HCPCS: 36415; 80053; 80061; 82962; 83036; 84439; 84443; 85025; G0378